=== PATIENT | male | born 1955 | race African-American/Black ===

== ENCOUNTER 2017-05-27 16:56 | Emergency (ER) | payer MEDICAID, OTHER ==
[~2017-05-27] VITALS: Ht 185.4 cm; Wt 77.0 kg
[2017-05-27] MEDS ORDERED: TETANUS, DIPHTHERIA, PERTUSSIS VAC/PF 0.5ML (>7YR OLD) IM ONE (19:00)
[2017-05-27] MEDS ORDERED: BACITRACIN ZINC OINT UDPKT TOP ONE (19:00)
[2017-05-27] MEDS ORDERED: LIDOCAINE HCL 1% 20ML VIAL (Pyxis) INJ MC ONE (19:00)
[2017-05-27 20:50] VITALS: BP 125/71
== END 2017-05-27 21:09 | disposition left against medical advice (07) ==
LOC: ER 17:37
DX: S01.111A Laceration without foreign body of right eyelid and periocular area, initial encounter (principal); M79.672 Pain in left foot; N40.0 Benign prostatic hyperplasia without lower urinary tract symptoms; Z88.8 Allergy status to other drugs, medicaments and biological substances; Y08.89XA Assault by other specified means, initial encounter; Y93.89 Activity, other specified; Y92.89 Other specified places as the place of occurrence of the external cause; Y99.8 Other external cause status
CPT/HCPCS: 12011; 70450; 73630; 90471; 90715; 99284; J3490; Z7610; A4315

== ENCOUNTER 2017-06-06 12:26 | Emergency (ER) | payer OTHER ==
[~2017-06-06] VITALS: Ht 182.9 cm; Wt 73.0 kg
[2017-06-06 12:39] VITALS: BP 105/70
== END 2017-06-06 19:20 | disposition home or self-care (01) ==
LOC: ER 18:19
DX: Z48.02 Encounter for removal of sutures (principal); Z91.09 Other allergy status, other than to drugs and biological substances
CPT/HCPCS: 99281; Z7610; 99282

== ENCOUNTER 2020-08-01 17:06 | Emergency (ER) | payer MEDICARE, MEDICAID ==
[~2020-08-01] VITALS: Ht 182.9 cm; Wt 77.0 kg
[2020-08-01 17:30] VITALS: BP 153/82
[2020-08-01] MEDS ORDERED: ACETAMINOPHEN WITH CODEINE 300/30MG TABLET PO STA (19:22)
[2020-08-01] MEDS ORDERED: TETANUS, DIPHTHERIA, PERTUSSIS VAC/PF 0.5ML (>7YR OLD) IM ONE (19:30)
[2020-08-01] MEDS ORDERED: IBUPROFEN 800MG TABLET PO ONE (20:30)
== END 2020-08-01 20:40 | disposition home or self-care (01) ==
LOC: ER 17:06
DX: S20.212A Contusion of left front wall of thorax, initial encounter (principal); S09.8XXA Other specified injuries of head, initial encounter; Y08.89XA Assault by other specified means, initial encounter; Y93.89 Activity, other specified; Y92.89 Other specified places as the place of occurrence of the external cause; Y99.8 Other external cause status; J45.909 Unspecified asthma, uncomplicated; Z91.018 Allergy to other foods
CPT/HCPCS: 90715; 99283